=== PATIENT | female | born 1990 | race American Indian/Alaskan Native ===

== ENCOUNTER 2018-04-10 10:10 | Emergency (ER) | payer SELFPAY ==
--- NOTE | 2018-04-10 10:53 | Emergency Department Report ---
ED Rash HPI - HPI Chief Complaint: Skin Rash Stated Complaint: IRRITATED SKIN Time Seen by Provider: 04/10/18 10:35 Duration: 1 Location: Abdomen, Upper Extremities Suspected Cause: Unknown Rash Symptoms: Yes Itching, No Facial Swelling, No Tongue/Oral Swelling, No Breathing Difficulties, No Choking Sensation, No Wheezing/Dyspnea, No Peeling, No Blistering, No Fever Severity: mild Other History: healthy 28 yo female with hx of HTN who presents with rash which occurs at night with itching and redness. improves throughout the day ED Review of Systems ROS: Stated complaint: IRRITATED SKIN Other details as noted in HPI Constitutional: denies: fever, malaise Respiratory: denies: cough Gastrointestinal: denies: abdominal pain, nausea, vomiting Skin: rash ED Past Medical Hx - Past Medical History Hx Hypertension: Yes - Surgical History Additional Surgical History: knee right, c sect - Social History Smoking Status: Never Smoker Substance Use Type: Marijuana Rash Exam - Exam General: Vital signs noted. No distress. Alert and acting appropriately. well apearing, NAD, healthy HEENT: No Periorbital Edema, No Conjuctival Injection, No Chemosis, No Perioral Edema, No Tongue Edema, No Uvular Edema, No Compromised Airway, No Drooling Lungs: No Labored Respirations, No Retractions, No Use of Accessory Muscles Skin: Yes Erythema, No Other (healed small 4 mm excoriation epigastric region, red patches upper chest small) ED Course Vital Signs 04/10/18 10:22 Temperature 99.7 F H Pulse Rate 79 Respiratory 16 Rate Blood Pressure 169/82 O2 Sat by Pulse 99 Oximetry ED Medical Decision Making - Medical Decision Making dx: allergic contact dermatitis recommended benadryl and hydrocortisone cream, OTC treatments Critical care attestation.: If time is entered above; I have spent that time in minutes in the direct care of this critically ill patient, excluding procedure time. ED Disposition Clinical Impression: Allergic contact dermatitis Disposition: DC-01 TO HOME OR SELFCARE Is pt being admited?: No Does the pt Need Aspirin: No Condition: Stable Instructions: Contact Dermatitis (ED) Additional Instructions: Please use over the counter hydrocortisone cream and benadryl. Referrals: [facility] [Outside] - 3-5 Days
[2018-04-10 11:10] VITALS: BP 150/87
== END 2018-04-10 11:08 | disposition home or self-care (01) ==
LOC: ED 10:10
DX: L23.9 Allergic contact dermatitis, unspecified cause (principal); I10 Essential (primary) hypertension; F12.10 Cannabis abuse, uncomplicated
CPT/HCPCS: 99282

== ENCOUNTER 2021-05-18 00:37 | Emergency (ER) | payer OTHER ==
[2021-05-18 01:19] VITALS: BP 180/102
--- NOTE | 2021-05-18 04:46 | Emergency Department Report ---
ED General Adult HPI - General Chief complaint: High BP Stated complaint: HPTN/KENYON PUI?: No Source: patient Mode of arrival: Ambulatory Limitations: No Limitations - History of Present Illness Initial comments: Patient is a 31-year-old -Tajik female with a history of morbid obesity, and hypertension who presents to the ED with persistently elevated blood pressure after changing to a new blood pressure medication that was prescribed by her primary care physician 24 hours ago and for which she has not taken since it was changed and she is yet to collect the medication at the pharmacy. Patient states that she is currently supposed to start taking losartan 100 mg daily for her chronic hypertension. Patient denies dizziness, syncope, nausea and vomiting, abdominal pain, chest pain, shortness of breath, sore throat, neck pain, numbness and tingling or weakness of upper and lower extremities bilaterally. MD Complaint: HEADACHE; Elevated BP -: Sudden, days(s) (2) Location: head Radiation: non-radiation Severity scale (0 -10): 4 Quality: aching Consistency: constant Improves with: none Worsens with: none Associated Symptoms: denies other symptoms. denies: confusion, chest pain, cough, diaphoresis, headaches, loss of appetite, malaise, nausea/vomiting, rash, shortness of breath, syncope, weakness Treatments Prior to Arrival: none - Related Data Previous Rx's Medication Instructions Recorded Last Taken Type Butalb/Acetamin/Caff 50-325-40 1 - 2 tab PO Q6HR PRN #12 tab 05/18/21 Unknown Rx [Fioricet 50-325-40] Ibuprofen [Motrin] 800 mg PO Q8HR PRN #30 tablet 05/18/21 Unknown Rx Allergies Allergy/AdvReac Type Severity Reaction Status Date / Time No Known Allergies Allergy Unverified 04/10/18 10:22 ED Review of Systems ROS: Stated complaint: HPTN/KENYON Other details as noted in HPI Constitutional: denies: chills, fever Eyes: denies: eye pain, eye discharge, vision change ENT: denies: ear pain, throat pain Respiratory: denies: cough, shortness of breath, wheezing Cardiovascular: denies: chest pain, palpitations Endocrine: no symptoms reported Gastrointestinal: denies: abdominal pain, nausea, diarrhea Genitourinary: denies: urgency, dysuria, discharge Musculoskeletal: denies: back pain, joint swelling, arthralgia Skin: denies: rash, lesions Neurological: headache. denies: weakness, paresthesias Psychiatric: denies: anxiety, depression Hematological/Lymphatic: denies: easy bleeding, easy bruising ED Past Medical Hx - Past Medical History Hx Hypertension: Yes - Surgical History Additional Surgical History: knee right, c sect - Social History Smoking Status: Never Smoker Substance Use Type: Marijuana - Medications Home Medications: Home Medications Medication Instructions Recorded Confirmed Last Taken Type Butalb/Acetamin/Caff 50-325-40 1 - 2 tab PO Q6HR PRN #12 tab 05/18/21 Unknown Rx [Fioricet 50-325-40] Ibuprofen [Motrin] 800 mg PO Q8HR PRN #30 tablet 05/18/21 Unknown Rx ED Physical Exam - General Limitations: No Limitations General appearance: alert, in no apparent distress - Head Head exam: Present: atraumatic, normocephalic, normal inspection - Eye Eye exam: Present: normal appearance, PERRL, EOMI Pupils: Present: normal accommodation - ENT ENT exam: Present: normal exam, normal orophraynx, mucous membranes moist, TM's normal bilaterally, normal external ear exam - Neck Neck exam: Present: normal inspection, full ROM - Respiratory Respiratory exam: Present: normal lung sounds bilaterally. Absent: respiratory distress, wheezes, chest wall tenderness, accessory muscle use, decreased breath sounds - Cardiovascular Cardiovascular Exam: Present: regular rate, normal rhythm, normal heart sounds. Absent: systolic murmur, diastolic murmur, rubs, gallop - GI/Abdominal GI/Abdominal exam: Present: soft, normal bowel sounds. Absent: tenderness, rebound, hyperactive bowel sounds, hypoactive bowel sounds, organomegaly, mass - Extremities Exam Extremities exam: Present: normal inspection, full ROM, normal capillary refill - Back Exam Back exam: Present: normal inspection, full ROM. Absent: tenderness, CVA tenderness (R), CVA tenderness (L), muscle spasm, vertebral tenderness - Neurological Exam Neurological exam: Present: alert, oriented X3, CN II-XII intact, normal gait, reflexes normal - Psychiatric Psychiatric exam: Present: normal affect, normal mood - Skin Skin exam: Present: warm, dry, intact, normal color. Absent: rash ED Course Vital Signs 05/18/21 01:14 Temperature 98.1 F Pulse Rate 69 Respiratory 17 Rate Blood Pressure 180/102 [Left] O2 Sat by Pulse 98 Oximetry ED Medical Decision Making - Medical Decision Making This is a 31-year-old -Tajik female with a history of morbid obesity, and hypertension who presents to the ED with persistently elevated blood pressure after changing to a new blood pressure medication that was prescribed by her primary care physician 24 hours ago and for which she has not taken since it was changed and she is yet to collect the medication at the pharmacy. Patient states that she is currently supposed to start taking losartan 100 mg daily for her chronic hypertension. In the ED, patient is alert and oriented x3 and is not in any distress but hypertensive in triage. Patient was treated for pain in the ED and also given oral anti education hydralazine 50 mg p.o. x1. Hypertensive patient was thereafter discharged home and advised to crab picker her prescription from the pharmacy that will prescribed by her primary care physician and to follow-up with her primary care physician in 5 to 7 days for reevaluation. Patient was however advised return to the ED immediately if symptoms get worse. - Differential Diagnosis hypertension; tension headache; cluster headache Critical care attestation.: If time is entered above; I have spent that time in minutes in the direct care of this critically ill patient, excluding procedure time. ED Disposition Clinical Impression: Uncontrolled stage 2 hypertension, Tension headache Disposition: 01 HOME / SELF CARE / HOMELESS Is pt being admited?: No Does the pt Need Aspirin: No Condition: Stable Instructions: Hypertension (ED), Tension Headache, Adult, [id number]-[id number], Hypertension, Adult, [id number] Additional Instructions: Ensure that you feel all your prescriptions that were previously prescribed by your primary care physician and to take them as advised. Return to the ED immediately if symptoms get worse. Prescriptions: Butalb/Acetamin/Caff 50-325-40 [Fioricet 50-325-40] 1 - 2 tab PO Q6HR PRN #12 tab PRN Reason: Headache Ibuprofen [Motrin] 800 mg PO Q8HR PRN #30 tablet PRN Reason: Pain , Severe (7-10) Referrals: [facility] [Provider Group] - 7-10 days Time of Disposition: 04:47 Print Language: KINYARWANDA
[2021-05-18] MEDS ORDERED: BUTALB/ACETAMINOPHEN/CAFFEINE TAB PO ONE ×2 (04:50→07:18)
[2021-05-18] MEDS ORDERED: hydrALAZINE 25 MG TAB PO ONE (04:50)
== END 2021-05-18 06:00 | disposition home or self-care (01) ==
LOC: ED 00:37
DX: I10 Essential (primary) hypertension (principal); G44.209 Tension-type headache, unspecified, not intractable; F12.90 Cannabis use, unspecified, uncomplicated
CPT/HCPCS: 99282

== ENCOUNTER 2021-05-22 03:26 | Emergency (ER) | payer OTHER ==
[2021-05-22] MEDS ORDERED: LOSARTAN 50 MG TAB PO ONE (05:00)
[2021-05-22] MEDS ORDERED: ACETAMINOPHEN 500 MG TAB PO ONE (05:00)
[2021-05-22 05:46] LABS: Hematocrit 36.8 % (30.3-42.9); Hemoglobin 12.2 gm/dl (10.1-14.3); Mean Corpuscular HGB Conc 33 % (30-34); Mean Corpuscular Volume 86 fl (79-97); Platelet Count 353 K/mm3 (140-440); Red Blood Count 4.28 M/mm3 (3.65-5.03); Red Cell Distribution Width 14.2 % (13.2-15.2)
[2021-05-22 06:01] LABS: BUN/Creatinine Ratio 15; Blood Urea Nitrogen 16 mg/dL (7-17); Calcium 9.4 mg/dL (8.4-10.2); Hemolysis Index 7
[2021-05-22] MEDS ORDERED: MORPHINE 4 MG/1 ML INJ IV ONE (06:19)
[2021-05-22] MEDS ORDERED: METOCLOPRAMIDE 10 MG/2 ML INJ IV ONE (06:19)
--- NOTE | 2021-05-22 06:29 | Emergency Department Report ---
HPI - General Chief Complaint: High BP Time Seen by Provider: 05/22/21 05:55 - HPI HPI: 31-year-old -[place] female presents to the emergency department with a complaint of a generalized headache that has been going on since last night. However the patient does admit that she has been having some recurrent headaches over the past few months, but never has had a work-up for it or a diagnosis of migraines, cluster headaches, or any other cephalgia condition. She does have a history of hypertension and says that she is compliant with her losartan, including taking 1 this morning, but she does present with very elevated blood pressure. His headache is associated with some intermittent mild blurry vision. She denies any fever, numbness or paresthesias, slurred speech, focal or lateralizing weakness. At the time of my examination the patient also denies any chest pain, shortness of breath, lower extremity swelling, nausea, vomiting or diaphoresis. She did not take anything for symptoms prior to presentation other than her home medications. Her headache is currently 6 out of 10 in intensity. No known aggravating or alleviating factors. The patient was seen here for similar symptoms 4 days ago. ED Past Medical Hx - Past Medical History Previous Medical History?: Yes Hx Hypertension: Yes - Surgical History Past Surgical History?: Yes Hx Cholecystectomy: Yes Additional Surgical History: knee right, c sect - Social History Smoking Status: Never Smoker Substance Use Type: Marijuana - Medications Home Medications: Home Medications Medication Instructions Recorded Confirmed Last Taken Type Losartan/Hydrochlorothiazide 1 each PO 05/22/21 Unknown History [Losartan-Hctz 100-12.5 mg Tab] ED Review of Systems ROS: Stated complaint: HTN/KENYON Other details as noted in HPI Comment: All other systems reviewed and negative Constitutional: denies: chills, fever Eyes: vision change (Intermittent blurred vision). denies: eye pain ENT: denies: ear pain, throat pain Respiratory: denies: cough, shortness of breath Cardiovascular: denies: chest pain, palpitations Gastrointestinal: denies: abdominal pain, vomiting Genitourinary: denies: dysuria, discharge Musculoskeletal: denies: back pain, arthralgia Skin: denies: rash, lesions Neurological: denies: headache, weakness Physical Exam - Physical Exam Vital Signs: Vital Signs 05/22/21 05/22/21 05/22/21 03:30 04:41 04:47 Temperature 98.2 F Pulse Rate 81 71 Respiratory 18 17 14 Rate Blood Pressure 197/128 162/96 [Right] O2 Sat by Pulse 100 100 100 Oximetry Physical Exam: GENERAL: The patient is well-developed well-nourished. HENT: Normocephalic. Atraumatic. Patient has moist mucous membranes. EYES: Extraocular motions are intact. No nystagmus. NECK: Supple. Trachea is midline. CHEST/LUNGS: Clear to auscultation. There is no respiratory distress noted. HEART/CARDIOVASCULAR: Regular. There is no tachycardia. There is no murmur. ABDOMEN: Abdomen is soft, nontender. Patient has normal bowel sounds. Morbidly obese habitus. SKIN: Skin is warm and dry. NEURO: The patient is awake, alert, and oriented. The patient is cooperative. The patient has no focal neurologic deficits. Normal speech. Cranial nerves II through XII grossly intact. No facial asymmetry. MUSCULOSKELETAL: There is no tenderness or deformity. There is no limitation range of motion. ED Course Vital Signs 05/22/21 05/22/21 05/22/21 03:30 04:41 04:47 Temperature 98.2 F Pulse Rate 81 71 Respiratory 18 17 14 Rate Blood Pressure 197/128 162/96 [Right] O2 Sat by Pulse 100 100 100 Oximetry ED Medical Decision Making - Lab Data Result diagrams: 05/22/21 05:21 05/22/21 05:21 Lab Results 05/22/21 05/22/21 05/22/21 Range/Units 05:21 05:21 06:31 WBC 8.8 (4.5-11.0) K/mm3 RBC 4.28 (3.65-5.03) M/mm3 Hgb 12.2 (10.1-14.3) gm/dl Hct 36.8 (30.3-42.9) % MCV 86 (79-97) fl MCH 28 (28-32) pg MCHC 33 (30-34) % RDW 14.2 (13.2-15.2) % Plt Count 353 (140-440) K/mm3 Sodium 138 (137-145) mmol/L Potassium 3.7 (3.6-5.0) mmol/L Chloride 100.9 (98-107) mmol/L Carbon Dioxide 24 (22-30) mmol/L Anion Gap 17 mmol/L BUN 16 (7-17) mg/dL Creatinine 1.1 (0.6-1.2) mg/dL Estimated GFR > 60 ml/min BUN/Creatinine Ratio 15 % Glucose 93 (65-100) mg/dL Calcium 9.4 (8.4-10.2) mg/dL Troponin T < 0.010 (0.00-0.029) ng/mL HCG, Qual Negative (Negative) - EKG Data -: EKG Interpreted by Nh EKG shows normal: sinus rhythm, axis, intervals, QRS complexes, ST-T waves Rate: normal - EKG Data When compared to previous EKG there are: previous EKG unavailable Interpretation: normal EKG - Radiology Data Radiology results: report reviewed CT HEAD WITHOUT CONTRAST INDICATION / CLINICAL INFORMATION: recurrent headaches. TECHNIQUE: Axial imaging performed from the skull apex through the skull base without the use of contrast. Sagittal and coronal reformatted images. All CT scans at this location are performed us ing CT dose reduction for ALARA by means of automated exposure control. COMPARISON: None available. FINDINGS: CEREBRAL PARENCHYMA: No significant abnormality. No acute territorial infarct. HEMORRHAGE: None. EXTRA-AXIAL SPACES: Normal in size and morphology for the patient's age. VENTRICULAR SYSTEM: Normal in size and morphology for the patient's age. MIDLINE SHIFT OR HERNIATION: None. CEREBELLUM / BRAINSTEM: No significant abnormality. CALVARIUM: No significant abnormality. ORBITS: Normal as visualized. PARANASAL SINUSES / MASTOID AIR CELLS: Normal as visualized. SOFT TISSUES of HEAD: No significant abnormality. ADDITIONAL FINDINGS: None. IMPRESSION: No acute intracranial abnormality. - Medical Decision Making This patient presents to the emergency department with a complaint of a generalized headache and uncontrolled blood pressure. On examination she does not have any focal, motor or sensory deficits and her cranial nerves are intact. CT scan of the head without contrast does not show any hemorrhage, large vessel occlusion, or any other acute process. Patient was given a dose of losartan which did help with the blood pressure. Over her ED course she was given some Tylenol, Zofran and morphine. She was reevaluated multiple times over multiple hours and is greatly improved. The patient was seen ambulatory in the emergency department and both appears and feels stable. She was discharged home with outpatient referrals for neurology, and instructed to follow-up with her primary care provider. She will return to the emergency department with any worsening of her symptoms or with any acute distress. Critical Care Time: No Critical care attestation.: If time is entered above; I have spent that time in minutes in the direct care of this critically ill patient, excluding procedure time. ED Disposition Clinical Impression: Hypertension Qualifiers: Hypertension type: primary hypertension Qualified Code(s): I10 - Essential (primary) hypertension Headache Qualifiers: Headache type: unspecified Headache chronicity pattern: unspecified pattern Intractability: not intractable Qualified Code(s): R51.9 - Headache, unspecified Disposition: 01 HOME / SELF CARE / HOMELESS Is pt being admited?: No Condition: Stable Instructions: General Headache Without Cause, Managing Your Hypertension, Hypertension, Adult, Hypertension (ED) Additional Instructions: Please follow-up with your primary care physician in the next few days. I am giving you a referral of a local neurologist, Dr. Mayberry, to follow-up regarding your recurrent headaches. Take your medications as previously prescribed. Try to stay away from foods that are high in salt and caffeinated products. Keep a blood pressure log. Return to the emergency department with any worsening of your symptoms, new or concerning symptoms not addressed during this current emergency department v isit, or with any acute distress. Referrals: JUSTICE BELTRE MD [Primary Care Provider] - 3-5 Days LARISA MAYBERRY MD [Referring] - 3-5 Days Time of Disposition: 14:27
--- NOTE | 2021-05-22 08:03 | Cat Scan Report ---
CT HEAD WITHOUT CONTRAST INDICATION / CLINICAL INFORMATION: recurrent headaches. TECHNIQUE: Axial imaging performed from the skull apex through the skull base without the use of cont rast. Sagittal and coronal reformatted images. All CT scans at this location are performed using CT dose reduction for ALARA by means of automated exposure control. COMPARISON: None available. FINDINGS: CEREBRAL PARENCHYMA: No significant abnormality. No acute territorial infarct. HEMORRHAGE: None. EXTRA-AXIAL SPACES: Normal in size and morphology for the patient's age. VENTRICULAR SYSTEM: Normal in size and morphology for the patient's age. MIDLINE SHIFT OR HERNIATION: None. CEREBELLUM / BRAINSTEM: No significant abnormality. CALVARIUM: No significant abnormality. ORBITS: Normal as visualized. PARANASAL SINUSES / MASTOID AIR CELLS: Normal as visualized. SOFT TISSUES of HEAD: No significant abnormality. ADDITIONAL FINDINGS: None. IMPRESSION: No acute intracranial abnormality. Signer Name: Yanick Hurst Jr, MD Signed: 05/22/2021 7:58 AM Workstation Name: [id number]
[2021-05-22 11:00] VITALS: BP 145/87
--- NOTE | 2021-05-25 09:57 | Electrocardiograph Report ---
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
== END 2021-05-22 11:00 | disposition home or self-care (01) ==
LOC: ED 03:26
DX: I10 Essential (primary) hypertension (principal); R51.9 Headache, unspecified; Z90.49 Acquired absence of other specified parts of digestive tract; F12.90 Cannabis use, unspecified, uncomplicated
CPT/HCPCS: 36415; 70450; 80048; 84484; 84703; 85027; 93005; 96374; 96375; 99284; J2270; J2765